=== PATIENT | female | born 1955 | race Caucasian/White ===

== ENCOUNTER 2022-05-21 01:39 | Emergency (ER) | payer MEDICAID ==
[~2022-05-21] VITALS: Ht 165.1 cm; Wt 90.0 kg
[2022-05-21] MEDS ORDERED: GLUCAGON,HUMAN RECOMBINANT 1MG/VIAL IV ONE (02:30)
[2022-05-21 04:06] VITALS: BP 122/62
== END 2022-05-21 04:32 | disposition home or self-care (01) ==
LOC: ER 01:39
DX: T17.928A Food in respiratory tract, part unspecified causing other injury, initial encounter (principal); X58.XXXA Exposure to other specified factors, initial encounter; Y93.89 Activity, other specified; Y92.89 Other specified places as the place of occurrence of the external cause; I10 Essential (primary) hypertension
CPT/HCPCS: 70360; 71045; 96374; 99284; J1610

== ENCOUNTER 2025-01-31 07:59 | Emergency (ER) | payer MEDICARE, MEDICAID ==
[~2025-01-31] VITALS: Ht 160 cm; Wt 80.0 kg
[~2025-01-31 07:59] MED LIST: ASPI-1406 PO; ATOR20TA65 PO; BENA5TAB40 PO; CETI10CA11 PO; CHOL400D7 PO; CITR473S PO; DAPA10TA PO; INSU100I73; INSU100V43 SQ; LEVO100T9 PO; QUET200T30 PO; SEMA0.258; TRIA16.99 BOTHNSTRLS
[2025-01-31 08:00] VITALS: BP 178/90; TEMP 36.7; O2SAT 97
[2025-01-31 08:25] VITALS: PULSE 88; RESP 18
[2025-01-31 08:55] LABS: BASOPHILS % 0.3 % (0.0-2.0); DIFFERENTIAL COMMENT 0; EOSINOPHILS % 0.1 % (0.0-5.0); HEMATOCRIT. 35.5 % (36.0-48.0); HEMOGLOBIN. 11.5 g/dL (12.0-16.0); LYMPHOCYTES % 8.7 % (20.0-50.0); MEAN CORPUSCULAR HEMOGLOBIN 25.8 pg (28.0-32.0); MEAN CORPUSCULAR HGB CONC 32.4 g/dL (31.0-37.0); MEAN CORPUSCULAR VOLUME 79.6 fL (81.0-99.0); MEAN PLATELET VOLUME 8.2 fl (7.4-10.4); MONOCYTES % 1.1 % (2.0-8.0); NEUTROPHILS % 89.8 % (40.0-76.0); PLATELET 276 x1000/uL (130-400); RED BLOOD CELL COUNT 4.46 mill/uL (4.2-5.4); RED CELL DISTRIBUTION WIDTH 16.5 % (11.6-14.6); WHITE BLOOD COUNT 9.4 x1000/uL (4.5-11.0)
[2025-01-31 08:57] VITALS: TEMP 98
[2025-01-31] MEDS: ACETAMINOPHEN 325MG TABLET PO ONE (08:57)
[2025-01-31 09:41] LABS: CHLORIDE 101 mEq/L (98-107); POTASSIUM 4.8 mEq/L (3.5-5.1); SODIUM 136 mEq/L (136-145)
[2025-01-31 09:42] LABS: CALCIUM 9.7 mg/dL (8.7-10.4); CARBON DIOXIDE 22 mEq/L (21-32)
[2025-01-31 09:47] LABS: CREATININE 2.6 mg/dL (0.6-1.0); GLUCOSE 328 mg/dL (70-105); UREA NITROGEN BLOOD 55 mg/dL (9-23)
[2025-01-31 10:11] LABS: BETA HYDROXYBUTYRATE < 0.1 mMol/L (0.0-0.3)
[2025-01-31] MEDS: INSULIN REGULAR (HUMULIN R) 1000UNITS/10ML VIAL SUBCUT ONE (10:39)
== END 2025-01-31 10:40 | disposition home or self-care (01) ==
LOC: ER 07:59
DX: M79.671 Pain in right foot (principal); E11.22 Type 2 diabetes mellitus with diabetic chronic kidney disease; J44.9 Chronic obstructive pulmonary disease, unspecified; N18.9 Chronic kidney disease, unspecified; Z79.899 Other long term (current) drug therapy; Z79.82 Long term (current) use of aspirin; Z79.4 Long term (current) use of insulin; Z98.890 Other specified postprocedural states
CPT/HCPCS: 99284; 80048; 82010; 82962; 85025; 36415; 73630; 96372; J1815